=== PATIENT | male | born 1945 | race Caucasian/White ===

== ENCOUNTER → 2017-07-06 | Day surgery (SDC) | payer MEDICARE, BC ==
[~2017-07-06] MED LIST: BUPIVACAINE/EPINEPHRINE 0.25% 50 ML VIAL; BUPIVACAINE/EPINEPHRINE 0.25% PF 30 ML VIAL INFIL; LACTATED RINGER'S 1000 ML INJ 1,000 ML; MIDAZOLAM HCL 2 MG/2 ML VIAL; NEOMYCIN/POLYMYXIN/BACITRACIN OINT 15 GM TUBE; ONDANSETRON HCL 4 MG/2 ML VIAL IV PUSH; PROPOFOL 200 MG/20 ML AMP IV; ceFAZolin 2 GM PREMIX 50 ML
== END | disposition home or self-care (01) ==
LOC: ESDC 09:36
DX: K43.6 Other and unspecified ventral hernia with obstruction, without gangrene (principal)
CPT/HCPCS: 00832